=== PATIENT | female | born 1950 | race Caucasian/White ===

== ENCOUNTER → 2017-09-07 | Day surgery (SDC) | payer OTHER ==
[~2017-09-07] VITALS: Ht 162.6 cm; Wt 70.4 kg
[~2017-09-07] MED LIST: ACETAMINOPHEN 1000 MG/100 ML 100 ML IV ONE; ASPI-183 PO; CHLORHEXIDINE GLUCONATE 2 % 1 PACK (2 CLOTHS) TOPICAL PRN; CLINDAMYCIN 600 MG/NS PREMIX 50 ML IV SCH; DEXAMETHASONE SOD PHOS 4 MG/ML VIAL IV ONE; DO NOT ADM ANY ANTICOAGULANT DRUGS PRN; ESTROGENS CONJUGATED VAG CREA 15 APPL/30 GM TUBE ONE; KETOROLAC TROMETHAMINE 60 MG/2 ML (IM) VIAL IM PRN; LACTATED RINGER'S 1000 ML IV PRN; LIDOCAINE 1%/EPINEPHrine 1:100,000 SOLN 30 ML VIAL ONE; LIDOCAINE HCL 1% PF 5 ML SYRINGE OTHER ONE; METOPROLOL TARTRATE 25 MG TAB PO PRN; ONDANSETRON HCL 4 MG/2 ML VIAL IV ONE; ONDANSETRON ODT 4 MG TAB SL PRN; POVIDONE IODINE 5% (ANTISEPSIS KIT) 4 APPLICATIONS EACH NARE PRN; PROPOFOL 200 MG/20 ML AMP IV ONE; SCOPOLAMINE 1.5 MG PATCH ONE; SIMV20TA PO; SODIUM CHLORID 0.9% 500 ML IV PRN; SODIUM CHLORIDE 0.9% 20 ML VIAL ONE; fentaNYL CITRATE 250 MCG/5 ML AMP ONE; metroNIDAZOLE 500 MG INJ 100 ML IV SCH; traMADol HCL 50 MG TAB PO PRN
[2017-09-07 09:30] VITALS: PULSE 59
[2017-09-07 10:05] VITALS: BP 125/82; RESP 16; TEMP 98.1; O2SAT 97
--- NOTE | 2017-09-07 11:11 | MP ---
cc: Henry Lieberman MD DATE OF OPERATION: 09/07/2017 PREOPERATIVE DIAGNOSIS: 1. Hematuria. 2. Retained foreign object in the cervix. POSTOPERATIVE DIAGNOSIS: 1. Hematuria. 2. Retained foreign object in the cervix. 3. Stage II rectocele. PROCEDURE PERFORMED: 1. Diagnostic cystoscopy. 2. Removal of embedded IUD. SURGEON: Dr. Lieberman. ANESTHESIA: Laryngeal mask. ESTIMATED BLOOD LOSS: Less than 5 mL URINE OUTPUT: 300 mL FLUIDS: 1000 crystalloid. FINDINGS: External genitalia normal. Pop-Q score: Aa -2, Ap 0. Point C is -6. Total vaginal length is 10. Genital hiatus is 8. Perineal body is 4. With inspection of the cervix, appears to be a Lippes Loop IUD that was embedded in the cervical stroma. This was removed without difficulty. Cystoscopy showed normal trigone, good coaptation urethra, ureteral orifice patent x2, dome and base of bladder normal. SPECIMENS: IUD for gross only. COMPLICATIONS: None. DISPOSITION: To the recovery room stable. COUNTS: Needle and sponge counts correct. DRAINS: None. TIMEOUT: Timeout procedure per protocol. DVT PROPHYLAXIS: Sequential compression device. ANTIBIOTIC PROPHYLAXIS: Flagyl and Cleocin. SUMMARY AND INDICATIONS FOR PROCEDURE: The patient with a history of gross hematuria, [id number] smoking history. Also, had some device that was embedded in the cervix. The patient had been under the impression that she had a hysterectomy and there was a very confusing surgical history. Decision was made to go to the operating room for exam under anesthesia and cystoscopy. The patient was taken to the operating theater, identified, prepped and draped in the usual sterile fashion appropriate for surgery. She was placed in the dorsal supine position with careful attention paid to placing the patient's legs in the stirrups to avoid undue stress to sensitive neurovascular structures. The above findings noted. Neurovascular integrity documented. Cystoscopy was performed using a 17-Kittitian bridge and a 70-degree scope. The above findings noted. There are no significant issues with ulceration or any suspicious lesions in the bladder. A pelvic exam was performed with speculum noted a Lippes Loop IUD in the cervical stroma. This was removed without difficulty. Minimal blood loss. No need for suturing at this point. The procedure concluded. The patient has issue with rectocele but is presently asymptomatic, so this was not repaired in this setting. The patient was taken to the recovery room in stable condition. Henry Lieberman MD CJS/TL , 10:38 AM , 11:10 AM
--- NOTE | 2017-09-07 14:32 | EKG ---
Date Performed: 09/07/2017 Time Performed: 06:51:08 PTAGE: 66 years EKG: Baseline artifact present Sinus rhythm NORMAL ECG NO PREVIOUS TRACING DOCTOR: Geovani Perez Interpretating Date/Time 09/07/2017 14:31:10
== END | disposition home or self-care (01) ==
LOC: HSDC 05:50
PROVIDERS: ATTEND Obstetrics & Gynecology Gynecology
DX: R31.9 Hematuria, unspecified (principal); T83.39XA Other mechanical complication of intrauterine contraceptive device, initial encounter; F17.200 Nicotine dependence, unspecified, uncomplicated; Z01.810 Encounter for preprocedural cardiovascular examination
CPT/HCPCS: 00910; 00940; 52000; 58301; 88300; 93005; J0131; J1885; J3010; J7120; J1100; J2405